=== PATIENT | female | born 1995 | race Asian ===

== ENCOUNTER 2018-03-05 17:14 | Emergency (ER) | payer SELFPAY ==
[~2018-03-05] VITALS: Ht 160 cm; Wt 86.4 kg
[2018-03-05 17:27] VITALS: BP 129/92
== END 2018-03-05 18:49 | disposition left against medical advice (07) ==
LOC: EMS 17:16
DX: R07.9 Chest pain, unspecified (principal); F41.9 Anxiety disorder, unspecified; Z53.21 Procedure and treatment not carried out due to patient leaving prior to being seen by health care provider